=== PATIENT | female | born 1955 | race Caucasian/White ===

== ENCOUNTER → 2024-04-08 | Day surgery (SDC) | payer MEDICARE, OTHER | LOC: MAMMO 06:50 | PROVIDERS: ATTEND Family Medicine | PROC: 0HBT3ZX Excision of Right Breast, Percutaneous Approach, Diagnostic (ICD-10-PCS; principal; 2024-04-08) | DX: D24.1 Benign neoplasm of right breast (principal); N60.21 Fibroadenosis of right breast; N62 Hypertrophy of breast; R92.0 Mammographic microcalcification found on diagnostic imaging of breast | CPT/HCPCS: 19081; 76098; A4648; 88305 ==